=== PATIENT | female | born 1990 | race Caucasian/White ===

== ENCOUNTER → 2020-07-22 | Outpatient (CLI) | payer BC ==
[2020-07-22 16:08] LABS: BASO % 0.4 % (0.0-1.0); EOS # 0.2 10^3/uL (0.0-0.5); EOS % 2.4 % (0.0-3.0); HEMATOCRIT 41.2 % (36.0-47.0); HEMOGLOBIN 12.8 g/dl (12.0-15.5); LYMPH # 1.2 10^3/uL (1.5-5.0); LYMPH % 14.6 % (24.0-44.0); MEAN CORPUSCULAR HEMOGLOBIN 27.5 pg (27.0-33.0); MEAN CORPUSCULAR HGB CONC 31.1 g/dl (32.0-36.5); MEAN CORPUSCULAR VOLUME 88.6 fl (80.0-96.0); MONO # 0.5 10^3/uL (0.0-0.8); MONO % 6.6 % (0.0-5.0); NEUTROPHILS # 6.1 10^3/uL (1.5-8.5); NEUTROPHILS % 75.5 % (36.0-66.0); PLATELET COUNT, AUTOMATED 244 10^3/uL (150-450); RED BLOOD COUNT 4.65 10^6/uL (4.00-5.40)
[2020-07-22 16:34] LABS: ERYTHROCYTE SEDIMENTATION RATE 5 mm/hr (0-20)
[2020-07-22 16:42] LABS: ALBUMIN 4.1 GM/DL (3.2-5.2); ALT/SGPT 35 U/L (12-78); BILIRUBIN,TOTAL 0.4 MG/DL (0.2-1.0); BLOOD UREA NITROGEN 15 MG/DL (7-18); CALCIUM LEVEL 9.2 MG/DL (8.5-10.1); CARBON DIOXIDE LEVEL 28 MEQ/L (21-32); CHLORIDE LEVEL 105 MEQ/L (98-107); CREATININE FOR GFR 0.65 MG/DL (0.55-1.30); FREE T4 1.03 NG/DL (0.76-1.46); GLOMERULAR FILTRATION RATE > 60.0 (>60); GLUCOSE, FASTING 88 MG/DL (70-100); HCG, SERUM QUANTITATIVE < 1.0 MIU/ML; IRON (FE) 25 UG/DL (50-170); PERCENT SATURATION 5.5 % (13.2-45.0); POTASSIUM SERUM 4.4 MEQ/L (3.5-5.1); SODIUM LEVEL 138 MEQ/L (136-145); THYROID STIMULATING HORMONE 0.647 uIU/ML (0.358-3.740); TOTAL IRON BINDING CAPACITY 454 UG/DL (250-450); TOTAL PROTEIN 7.4 GM/DL (6.4-8.2)
== END ==
LOC: M WUC 14:13
PROVIDERS: ATTEND Physician Assistant
DX: J06.9 Acute upper respiratory infection, unspecified (principal); R11.0 Nausea; Z20.828 Contact with and (suspected) exposure to other viral communicable diseases

== ENCOUNTER → 2020-07-30 | Outpatient (REF) | payer BC ==
[2020-07-30 11:22] LABS: BASO # 0.1 10^3/uL (0.0-0.2); BASO % 0.8 % (0.0-1.0); EOS # 0.4 10^3/uL (0.0-0.5); EOS % 5.7 % (0.0-3.0); HEMATOCRIT 39.3 % (36.0-47.0); HEMOGLOBIN 12.8 g/dl (12.0-15.5); LYMPH # 2.5 10^3/uL (1.5-5.0); LYMPH % 35.5 % (24.0-44.0); MEAN CORPUSCULAR HGB CONC 32.6 g/dl (32.0-36.5); MEAN CORPUSCULAR VOLUME 89.1 fl (80.0-96.0); MONO # 0.7 10^3/uL (0.0-0.8); MONO % 9.2 % (0.0-5.0); NEUTROPHILS # 3.4 10^3/uL (1.5-8.5); NEUTROPHILS % 48.4 % (36.0-66.0); PLATELET COUNT, AUTOMATED 236 10^3/uL (150-450); RED BLOOD COUNT 4.41 10^6/uL (4.00-5.40); WHITE BLOOD COUNT 7.1 10^3/uL (4.0-10.0)
[2020-07-30 12:01] LABS: ALBUMIN 3.5 GM/DL (3.2-5.2); ALT/SGPT 42 U/L (12-78); BILIRUBIN,TOTAL 0.4 MG/DL (0.2-1.0); BLOOD UREA NITROGEN 13 MG/DL (7-18); CALCIUM LEVEL 8.9 MG/DL (8.5-10.1); CARBON DIOXIDE LEVEL 27 MEQ/L (21-32); CHLORIDE LEVEL 107 MEQ/L (98-107); FERRITIN 21 NG/ML (8-252); FREE T4 0.92 NG/DL (0.76-1.46); GLOMERULAR FILTRATION RATE > 60.0 (>60); GLUCOSE, FASTING 90 MG/DL (70-100); IRON (FE) 41 UG/DL (50-170); PERCENT SATURATION 10.4 % (13.2-45.0); POTASSIUM SERUM 4.2 MEQ/L (3.5-5.1); SODIUM LEVEL 139 MEQ/L (136-145); TOTAL 25(OH) VITAMIN D 21.5 NG/ML (30.0-100.0); TOTAL IRON BINDING CAPACITY 395 UG/DL (250-450); TOTAL PROTEIN 6.8 GM/DL (6.4-8.2); VITAMIN B12 LEVEL 606 PG/ML
[2020-07-30 12:02] LABS: FOLATE 17.5 NG/ML
== END ==
LOC: M WUC 10:17
PROVIDERS: ATTEND Physician Assistant
DX: D50.9 Iron deficiency anemia, unspecified (principal); R55 Syncope and collapse

== ENCOUNTER 2020-08-15 12:53 | Emergency (ER) | payer BC ==
[~2020-08-15] VITALS: Ht 154.9 cm; Wt 76.4 kg
[2020-08-15 12:53] VITALS: BP 136/85
[2020-08-15] MEDS ORDERED: GIAN1TAB (13:00)
--- NOTE | 2020-08-15 13:39 | REP ---
INDICATION: pain and swelling after a fall. COMPARISON: None. TECHNIQUE: Four views. FINDINGS: . four views of the right ankle demonstrate intact ankle mortise. There is an old accessory ossicle adjacent to the medial malleolus. No fracture is seen. Achilles and plantar calcaneal spurring is noted. There is mild anterolateral swelling. IMPRESSION: The no acute fracture noted. Well corticated accessory ossicle adjacent to the medial malleolus. Heel spurs. Anterolateral soft tissue swelling about the ankle. <Electronically signed by Winston Grullon > 08/15/20 [id number]
== END 2020-08-15 15:04 | disposition home or self-care (01) ==
LOC: M ED 12:53
DX: S93.401A Sprain of unspecified ligament of right ankle, initial encounter (principal); W00.0XXA Fall on same level due to ice and snow, initial encounter; Y92.512 Supermarket, store or market as the place of occurrence of the external cause; Z79.3 Long term (current) use of hormonal contraceptives

== ENCOUNTER → 2020-12-11 | Outpatient (CLI) | payer BC ==
[~2020-12-11] MED LIST: GIAN1TAB
--- NOTE | 2020-12-11 18:17 | REPVR ---
PROCEDURE INFORMATION: Exam: CT Right Lower Extremity Without Contrast, Foot Exam date and time: 12/11/2020 5:43 PM Age: 30 years old Clinical indication: Condition or disease; Other: FX of lower end RT tibia TECHNIQUE: Imaging protocol: CT of the Right lower extremity without contrast was performed. Exam focused on the foot. Radiation optimization: All CT scans at this facility use at least one of these dose optimization techniques: automated exposure control; mA and/or kV adjustment per patient size (includes targeted exams where dose is matched to clinical indication); or iterative reconstruction. COMPARISON: CR Ankle, complete 08/15/2020 1:09 PM FINDINGS: There is a coronal plane nondisplaced intra-articular fracture of the posterior tibial malleolus. No other fracture is identified. No dislocation. There is thickening of the anterior talofibular and calcaneofibular ligaments suspicious for sprains. 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 There are small smooth ossifications within the soft tissues at the anterior medial tibiofemoral joint consistent with old soft tissue and/or bone injury. The subtalar, talonavicular and calcaneocuboid joints are intact. Bone density is normal. There are small superior and inferior calcaneal spurs. IMPRESSION: 1. Acute nondisplaced intra-articular fracture of the posterior tibia malleolus. 2. Findings suspicious for sprains of the anterior talofibular and calcaneofibular ligaments. 3. Ossification at the anteromedial tibiotalar joint consistent with old soft tissue and/or bone injury. Electronically signed by: Luis E Theodore On 12/11/2020 18:17:29 PM
--- NOTE | 2020-12-11 18:20 | REPVR ---
PROCEDURE INFORMATION: Exam: CT Right Lower Extremity Without Contrast, Ankle Exam date and time: 12/11/2020 5:43 PM Age: 30 years old Clinical indication: Condition or disease; Other: FX of lower end RT tibia TECHNIQUE: Imaging protocol: CT of the Right lower extremity without contrast was performed. Exam focused on the ankle. Radiation optimization: All CT scans at this facility use at least one of these dose optimization techniques: automated exposure control; mA and/or kV adjustment per patient size (includes targeted exams where dose is matched to clinical indication); or iterative reconstruction. COMPARISON: CR Ankle, complete 08/15/2020 1:09 PM FINDINGS: There is a coronal plane nondisplaced intra-articular fracture of the posterior tibial malleolus. No other fracture is identified. No dislocation. There is thickening of the anterior talofibular and calcaneofibular ligaments suspicious for sprains. 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 There are small smooth ossifications within the soft tissues at the anterior medial tibiofemoral joint consistent with old soft tissue and/or bone injury. The subtalar, talonavicular and calcaneocuboid joints are intact. Bone density is normal. There are small superior and inferior calcaneal spurs. IMPRESSION: 1. Acute nondisplaced intra-articular fracture of the posterior tibia malleolus. 2. Findings suspicious for sprains of the anterior talofibular and calcaneofibular ligaments. 3. Ossification at the anteromedial tibiotalar joint consistent with old soft tissue and/or bone injury. Electronically signed by: Luis E Theodore On 12/11/2020 18:19:47 PM
== END ==
LOC: M RAD 17:29
PROVIDERS: ATTEND Physician Assistant Surgical
DX: S82.391D Other fracture of lower end of right tibia, subsequent encounter for closed fracture with routine healing (principal); Y92.9 Unspecified place or not applicable; Y93.9 Activity, unspecified; Y99.9 Unspecified external cause status

== ENCOUNTER 2020-12-28 03:10 | Emergency (ER) | payer BC ==
[~2020-12-28] VITALS: Ht 154.9 cm; Wt 80.3 kg
[2020-12-28 05:30] LABS: BASO % 0.3 % (0.0-1.0); EOS # 0.2 10^3/uL (0.0-0.5); EOS % 1.2 % (0.0-3.0); HEMATOCRIT 38.8 % (36.0-47.0); HEMOGLOBIN 12.7 g/dl (12.0-15.5); LYMPH # 1.4 10^3/uL (1.5-5.0); LYMPH % 11.1 % (24.0-44.0); MEAN CORPUSCULAR HEMOGLOBIN 29.1 pg (27.0-33.0); MEAN CORPUSCULAR HGB CONC 32.7 g/dl (32.0-36.5); MONO # 0.8 10^3/uL (0.0-0.8); MONO % 6.5 % (2.0-8.0); NEUTROPHILS # 10.2 10^3/uL (1.5-8.5); NEUTROPHILS % 80.3 % (36.0-66.0); PLATELET COUNT, AUTOMATED 216 10^3/uL (150-450); RED BLOOD COUNT 4.36 10^6/uL (4.00-5.40); WHITE BLOOD COUNT 12.7 10^3/uL (4.0-10.0)
[2020-12-28 05:57] LABS: HCG, SERUM QUALITATIVE NEGATIVE (NEGATIVE)
[2020-12-28 06:00] LABS: ALBUMIN 3.8 GM/DL (3.2-5.2); ALT/SGPT 27 U/L (12-78); BILIRUBIN,DIRECT 0.1 MG/DL (0.0-0.2); BILIRUBIN,TOTAL 0.3 MG/DL (0.2-1.0); BLOOD UREA NITROGEN 11 MG/DL (7-18); CARBON DIOXIDE LEVEL 28 MEQ/L (21-32); CHLORIDE LEVEL 105 MEQ/L (98-107); CREATININE FOR GFR 0.56 MG/DL (0.55-1.30); GLOMERULAR FILTRATION RATE > 60.0 (>60); GLUCOSE, FASTING 116 MG/DL (70-100); LIPASE 119 U/L (73-393); POTASSIUM SERUM 4.4 MEQ/L (3.5-5.1); SODIUM LEVEL 138 MEQ/L (136-145)
[2020-12-28] MEDS ORDERED: ISOVUE-370 76% 100ML VIAL As Ordered ONE (06:50)
--- NOTE | 2020-12-28 07:50 | REPVR ---
PROCEDURE INFORMATION: Exam: CT Abdomen And Pelvis With Contrast Exam date and time: 12/28/2020 6:56 AM Age: 30 years old Clinical indication: Other: Upper abd pain TECHNIQUE: Imaging protocol: Computed tomography of the abdomen and pelvis with contrast. Radiation optimization: All CT scans at this facility use at least one of these dose optimization techniques: automated exposure control; mA and/or kV adjustment per patient size (includes targeted exams where dose is matched to clinical indication); or iterative reconstruction. Contrast material: ISOVUE 370; Contrast volume: 100 ml; Contrast route: INTRAVENOUS (IV); COMPARISON: No relevant prior studies available. FINDINGS: Lungs: The visualized lung bases demonstrate minor dependent atelectasis. Liver: The liver contains a 4 mm hypodense lesion in its right lobe (image [id number]), too small to characterize. It appears otherwise unremarkable. Gallbladder and bile ducts: No gallstones are evident, but ultrasound would be more sensitive. There appears to be some gallbladder wall thickening and/or pericholecystic fluid, however. Pancreas: Normal. No ductal dilation. Spleen: Normal. No splenomegaly. Adrenal glands: Normal. No mass. Kidneys and ureters: Normal. No hydronephrosis. Stomach and bowel: The unopacified small bowel is not significantly distended to suggest obstruction. The large bowel is grossly unremarkable in appearance. Appendix: The appendix appears normal. Intraperitoneal space: No free air or significant free fluid. Vasculature: Unremarkable. No abdominal aortic aneurysm. Lymph nodes: Unremarkable. No enlarged lymph nodes. Urinary bladder: Unremarkable. Reproductive: There appears to be a thick-walled left adnexal cyst measuring up to 2.0 cm. Bones/joints: Mild degenerative changes involve the spine and hips. Soft tissues: Unremarkable. IMPRESSION: 1. Appearance of some gallbladder wall thickening and/or pericholecystic fluid, without cholelithiasis evident. Consider ultrasound as a more sensitive exam to possible gallstones and cholecystitis. 2. 4 mm hypodense hepatic lesion, too small to characterize. In a low-risk patient, this lesion is most likely to be benign and no further follow-up is recommended. In a high-risk patient, recommend follow-up MRI in 3-6 months (or earlier if warranted by the patient's specific clinical circumstances). 3. Appearance of a 2.0 cm thick-walled left adnexal cyst. Electronically signed by: Dayron Waller On 12/28/2020 07:49:57 AM
--- NOTE | 2020-12-28 09:00 | REP ---
INDICATION: upper abd pain. COMPARISON: None. TECHNIQUE: Real-time sonographic evaluation of right upper quadrant performed. FINDINGS: Multiple gallstones are seen in the gallbladder measuring up to 1.6 cm in maximum diameter. The gallbladder wall is thickened, AP diameter is 9 mm maximally. There is no pericholecystic fluid.. There is no intrahepatic or extrahepatic biliary dilatation, common bile duct measures 5 mm in maximum diameter. The liver demonstrates homogeneous echotexture with no gross mass. A hypoechoic nodule is seen in the body of the pancreas 12 x 8 x 7 mm. The right kidney demonstrates no hydronephrosis, with a normal size of 11.7 cm in length. No free fluid is seen. IMPRESSION: Multiple gallstones in the gallbladder. Gallbladder wall thickening up to 9 mm. No free fluid or biliary dilatation. There is a hypoechoic nodule in the body of the pancreas 12 x 8 x 7 mm. Recommend non emergent dedicated MRI of the pancreas with and without contrast. <Electronically signed by Roland Rick > 12/28/20 [id number]
[2020-12-28] MEDS ORDERED: AUGM875T28 PO (09:13)
[2020-12-28 09:21] VITALS: BP 120/69
--- NOTE | 2020-12-28 14:00 | ED PDOC ---
Post-Departure Follow-Up dr doran and dr andrea niño faxed [facility] for fu Genie Bennett MD Dec 28, 2020 14:00
== END 2020-12-28 09:27 | disposition home or self-care (01) ==
LOC: M ED 03:10
DX: K80.10 Calculus of gallbladder with chronic cholecystitis without obstruction (principal); Z79.3 Long term (current) use of hormonal contraceptives
CPT/HCPCS: 36415; 74177; 76705; 80048; 80076; 81001; 83690; 84703; 85025; 99284; Q9967

== ENCOUNTER → 2021-02-01 | Outpatient (CLI) | payer BC ==
[~2021-02-01] MED LIST changes: +AUGM875T28 PO; +PROHANCE 279.3MG/ML 15ML VIAL ONE
--- NOTE | 2021-02-01 12:50 | REP ---
INDICATION: NEOPLASM, ABNORMAL CT SCAN. COMPARISON: CT and ultrasound 12/28/2020. TECHNIQUE: Multiple sequences obtained in the axial coronal planes prior to and following the intravenous administration of 15 cc ProHance. FINDINGS: In the body of the pancreas there is a nodule, as seen on the recent ultrasound. This measures approximately 1.1 cm in diameter. It is hypointense on T1 and mildly hyperintense on T2. It is not well visualized on postcontrast images. There is no associated dilatation of the pancreatic duct. No other pancreatic abnormality is seen. No abnormality is seen of the liver. There are gallstones in the gallbladder, a dominant gallstone measures 1.7 cm. There are also a few subcentimeter gallstones. There is no gallbladder wall edema. There is no intrahepatic or extrahepatic biliary dilatation. The spleen, adrenals and kidneys are unremarkable in appearance. There is no adenopathy or free fluid in the abdomen. IMPRESSION: Nonspecific nodule in the body of the pancreas measuring 1.1 cm in diameter. This is not a simple cyst. It is not well seen on postcontrast imaging and is likely solid. Recommend endoscopic ultrasound and biopsy. <Electronically signed by Roland Rick > 02/01/21 [id number]
== END ==
LOC: M PLAIMG 10:38
PROVIDERS: ATTEND Physician Assistant
DX: D48.7 Neoplasm of uncertain behavior of other specified sites (principal)
CPT/HCPCS: 74183; A9576

== ENCOUNTER → 2021-02-05 | Outpatient (CLI) | payer BC ==
[~2021-02-05] MED LIST changes: -PROHANCE 279.3MG/ML 15ML VIAL ONE
[2021-02-05 10:20] LABS: ALBUMIN 3.6 GM/DL (3.2-5.2); ALT/SGPT 19 U/L (12-78); AMYLASE 60 U/L (25-115); BILIRUBIN,DIRECT 0.1 MG/DL (0.0-0.2); BILIRUBIN,TOTAL 0.4 MG/DL (0.2-1.0); BLOOD UREA NITROGEN 13 MG/DL (7-18); CALCIUM LEVEL 9.3 MG/DL (8.5-10.1); CARBON DIOXIDE LEVEL 27 MEQ/L (21-32); CHLORIDE LEVEL 109 MEQ/L (98-107); CREATININE FOR GFR 0.65 MG/DL (0.55-1.30); GLOMERULAR FILTRATION RATE > 60.0 (>60); GLUCOSE, FASTING 87 MG/DL (70-100); LIPASE 149 U/L (73-393); POTASSIUM SERUM 4.7 MEQ/L (3.5-5.1); SODIUM LEVEL 142 MEQ/L (136-145); TOTAL PROTEIN 7.2 GM/DL (6.4-8.2)
[2021-02-05 11:00] LABS: CA19-9 TUMOR MARKER,CARBOHYDRA 15.5 U/ML (<35.0)
== END ==
LOC: M WUC 08:29
PROVIDERS: ATTEND Physician Assistant
DX: D48.7 Neoplasm of uncertain behavior of other specified sites (principal)

== ENCOUNTER → 2021-02-17 | Outpatient (REF) | payer BC ==
[2021-02-17 17:28] LABS: AMYLASE 56 U/L (25-115); LIPASE 146 U/L (73-393)
== END ==
LOC: M WUC 16:29
PROVIDERS: ATTEND Internal Medicine Gastroenterology
DX: R10.13 Epigastric pain (principal); K86.89 Other specified diseases of pancreas

== ENCOUNTER → 2021-10-13 | Outpatient (CLI) | payer BC ==
[~2021-10-13] MED LIST changes: +PROHANCE 279.3MG/ML 15ML VIAL ONE
== END ==
LOC: M PLAIMG 08:56
PROVIDERS: ATTEND Internal Medicine Gastroenterology
DX: R10.13 Epigastric pain (principal); K80.20 Calculus of gallbladder without cholecystitis without obstruction; K86.89 Other specified diseases of pancreas
CPT/HCPCS: 74183; A9576

== ENCOUNTER 2021-11-16 05:52 | Emergency (ER) | payer BC ==
[~2021-11-16] VITALS: Ht 154.9 cm; Wt 81.3 kg
[~2021-11-16 05:52] MED LIST changes: -PROHANCE 279.3MG/ML 15ML VIAL ONE
[2021-11-16 05:53] VITALS: BP 115/66
[2021-11-16] MEDS ORDERED: ERGO500029 PO (06:09)
[2021-11-16] MEDS ORDERED: HYOS125TA PO (06:09)
[2021-11-16] MEDS ORDERED: CETI-24 PO (06:09)
== END 2021-11-16 07:28 | disposition left against medical advice (07) ==
LOC: M ED 05:52
DX: Z53.29 Procedure and treatment not carried out because of patient's decision for other reasons (principal)

== ENCOUNTER → 2022-05-17 | Outpatient (CLI) | payer BC ==
[~2022-05-17] MED LIST changes: +CETI-24 PO; +ERGO500029 PO; +HYOS125TA PO
[2022-05-17 18:00] LABS: HEMATOCRIT 37.8 % (36.0-47.0); HEMOGLOBIN 12.5 g/dl (12.0-15.5); MEAN CORPUSCULAR HEMOGLOBIN 29.3 pg (27.0-33.0); MEAN CORPUSCULAR HGB CONC 33.1 g/dl (32.0-36.5); MEAN CORPUSCULAR VOLUME 88.5 fl (80.0-96.0); PLATELET COUNT, AUTOMATED 246 10^3/uL (150-450); RED BLOOD COUNT 4.27 10^6/uL (4.00-5.40); WHITE BLOOD COUNT 7.5 10^3/uL (4.0-10.0)
[2022-05-17 19:09] LABS: HEPATITIS C VIRUS ABY INDEX < 0.0 INDEX (<0.8); HIV 1&2 SCREEN CENTAUR NEGATIVE (NEGATIVE)
[2022-05-17 19:49] LABS: GC DNA AMPLIFICATION NEGATIVE (NEGATIVE)
== END ==
LOC: M PLALAB 15:36
PROVIDERS: ATTEND Advanced Practice Midwife
DX: Z36.89 Encounter for other specified antenatal screening (principal)

== ENCOUNTER → 2022-07-15 | Outpatient (CLI) | payer BC | LOC: M WHC 08:55 | PROVIDERS: ATTEND Specialist | DX: Z34.82 Encounter for supervision of other normal pregnancy, second trimester (principal) ==

== ENCOUNTER → 2022-08-02 | Outpatient (CLI) | payer BC | LOC: M WHC 14:34 | PROVIDERS: ATTEND Advanced Practice Midwife | DX: Z34.92 Encounter for supervision of normal pregnancy, unspecified, second trimester (principal); Z3A.21 21 weeks gestation of pregnancy ==

== ENCOUNTER → 2022-09-05 | Outpatient (CLI) | payer BC ==
[2022-09-05 14:13] LABS: HEMATOCRIT 33.9 % (36.0-47.0); MEAN CORPUSCULAR HEMOGLOBIN 30.3 pg (27.0-33.0); MEAN CORPUSCULAR HGB CONC 32.4 g/dl (32.0-36.5); MEAN CORPUSCULAR VOLUME 93.4 fl (80.0-96.0); PLATELET COUNT, AUTOMATED 188 10^3/uL (150-450); RED BLOOD COUNT 3.63 10^6/uL (4.00-5.40); WHITE BLOOD COUNT 8.7 10^3/uL (4.0-10.0)
== END ==
LOC: M PLALAB 08:26
PROVIDERS: ATTEND Advanced Practice Midwife
DX: Z34.92 Encounter for supervision of normal pregnancy, unspecified, second trimester (principal)

== ENCOUNTER → 2022-11-08 | Outpatient (REF) | payer BC | LOC: M SFHCWAGY 10:00 | PROVIDERS: ATTEND Specialist | DX: Z34.83 Encounter for supervision of other normal pregnancy, third trimester (principal) ==

== ENCOUNTER 2022-12-11 13:11 | Inpatient (IN) | payer BC ==
[2022-12-11] VITALS (7 sets, daily range): BP systolic 136–162; BP diastolic 78–90
[~2022-12-11] VITALS: Ht 154.9 cm; Wt 81.6 kg
[2022-12-11] MEDS: PRENATAL VITAMINS CHEWABLE TABLET PO SCH (09:00)
[2022-12-11] MEDS ORDERED: LIDOCAINE 1% MDV 20ML VIAL INFIL PRN (13:55)
[2022-12-11] MEDS ORDERED: OXYTOCIN DRIP 30 UNITS in IV 1 EA IV PRN (13:55)
[2022-12-11 14:21] LABS: HEMATOCRIT 35.9 % (36.0-47.0); HEMOGLOBIN 12.1 g/dl (12.0-15.5); MEAN CORPUSCULAR HEMOGLOBIN 29.7 pg (27.0-33.0); MEAN CORPUSCULAR HGB CONC 33.7 g/dl (32.0-36.5); PLATELET COUNT, AUTOMATED 174 10^3/uL (150-450); RED BLOOD COUNT 4.08 10^6/uL (4.00-5.40); WHITE BLOOD COUNT 9.9 10^3/uL (4.0-10.0)
[2022-12-11] MEDS ORDERED: IBUPROFEN 800 MG TAB PO PRN (16:35)
[2022-12-11] MEDS ORDERED: DOCUSATE SODIUM 100MG CAPSULE PO PRN (16:35)
[2022-12-11] MEDS ORDERED: ACETAMINOPHEN 500 MG TAB PO PRN (16:35)
[2022-12-11] MEDS ORDERED: ACETAMINOPHEN TAB 650MG DOSE (2X325MG) PO PRN (16:35)
[2022-12-11] MEDS ORDERED: IBUPROFEN 600MG TAB PO PRN (16:35)
[2022-12-11] MEDS ORDERED: DIBUCAINE 1% OINTMENT 30GM TOP PRN (16:35)
[2022-12-11] MEDS ORDERED: METHYLERGONOVINE MALEATE 0.2 MG TAB PO PRN (16:35)
[2022-12-11] MEDS ORDERED: RHOGAM 300MCG (1500IU) INJ IM SCH (16:35)
[2022-12-12 06:16] VITALS: BP 136/90
[2022-12-12] MEDS: PRENATAL VITAMINS CHEWABLE TABLET PO SCH (09:17)
[2022-12-12 17:45] VITALS: BP 162/84
[2022-12-12 18:00] VITALS: BP 154/88
[2022-12-12 22:00] VITALS: BP 128/74
[2022-12-13] VITALS (7 sets, daily range): BP systolic 125–148; BP diastolic 72–90
[2022-12-13 07:55] LABS: URIC ACID 4.9 MG/DL (3.1-7.8)
[2022-12-13 07:57] LABS: LDH LACTATE DEHYDROGENASE 235 U/L (120-246)
[2022-12-13 07:58] LABS: ALT/SGPT 11 U/L (7.0-40); AST/SGOT < 8 U/L (<34); BILIRUBIN,TOTAL 0.4 MG/DL (0.3-1.2); CREATININE FOR GFR 0.62 MG/DL (0.55-1.30); GLOMERULAR FILTRATION RATE > 60.0 (>60)
[2022-12-13 08:03] LABS: HEMATOCRIT 29.3 % (36.0-47.0); MEAN CORPUSCULAR HEMOGLOBIN 30.5 pg (27.0-33.0); MEAN CORPUSCULAR HGB CONC 33.8 g/dl (32.0-36.5); MEAN CORPUSCULAR VOLUME 90.2 fl (80.0-96.0); PLATELET COUNT, AUTOMATED 160 10^3/uL (150-450); RED BLOOD COUNT 3.25 10^6/uL (4.00-5.40); WHITE BLOOD COUNT 10.2 10^3/uL (4.0-10.0)
[2022-12-13 08:15] LABS: HEMOGLOBIN 9.9 g/dl (12.0-15.5)
[2022-12-13] MEDS ORDERED: MEASLES,MUMPS,RUBELLA VACCINE INJ (MMR-II) SC.IMMUN ONE (09:00)
[2022-12-13] MEDS: PRENATAL VITAMINS CHEWABLE TABLET PO SCH (09:11)
[2022-12-13] MEDS ORDERED: IBUP-1022 PO (14:47)
[2022-12-13] MEDS ORDERED: COLA100C5 PO (14:47)
[2022-12-13] MEDS ORDERED: ACET-683 PO (14:47)
== END 2022-12-13 19:28 | disposition home or self-care (01) | DRG 560 ==
LOC: M LDO 13:11 → M LDI 13:46 → M OBS 19:14
PROVIDERS: ADMIT Specialist; ATTEND Specialist
PROC: 10E0XZZ Delivery of Products of Conception, External Approach (ICD-10-PCS; principal; 2022-12-11)
DX: O48.0 Post-term pregnancy (principal); O70.1 Second degree perineal laceration during delivery; Z37.0 Single live birth; Z3A.41 41 weeks gestation of pregnancy

== ENCOUNTER → 2024-01-09 | Outpatient (CLI) | payer BC ==
[~2024-01-09] MED LIST changes: +ACET-683 PO; +COLA100C5 PO; +IBUP-1022 PO; +PROHANCE 279.3MG/ML 15ML VIAL ONE
== END ==
LOC: M PLAIMG 15:09
PROVIDERS: ATTEND Physician Assistant
DX: D13.6 Benign neoplasm of pancreas (principal)
CPT/HCPCS: 74183; A9576

== ENCOUNTER → 2024-06-21 | Outpatient (CLI) | payer BC ==
[~2024-06-21] MED LIST changes: -PROHANCE 279.3MG/ML 15ML VIAL ONE
[2024-06-21 12:31] LABS: BASO % 0.6 % (0.0-1.0); EOS # 0.4 10^3/uL (0.0-0.5); HEMOGLOBIN 12.1 g/dl (12.0-15.5); LYMPH # 1.9 10^3/uL (1.5-5.0); LYMPH % 30.9 % (24.0-44.0); MEAN CORPUSCULAR HGB CONC 31.8 g/dl (32.0-36.5); MONO # 0.5 10^3/uL (0.0-0.8); MONO % 8.6 % (2.0-8.0); NEUTROPHILS # 3.3 10^3/uL (1.5-8.5); NEUTROPHILS % 52.6 % (36.0-66.0); PLATELET COUNT, AUTOMATED 251 10^3/uL (150-450); RED BLOOD COUNT 4.32 10^6/uL (4.00-5.40); WHITE BLOOD COUNT 6.3 10^3/uL (4.0-10.0)
[2024-06-21 12:59] LABS: HEMOGLOBIN A1c 5.2 % (4.0-6.0)
[2024-06-21 13:01] LABS: TOTAL IRON BINDING CAPACITY 354 UG/DL (250-425)
[2024-06-21 13:02] LABS: ALBUMIN 3.7 G/DL (3.2-5.2); ALKALINE PHOSPHATASE 53 U/L (35-104); ALT/SGPT 13 U/L (7.0-40); AST/SGOT < 8 U/L (<34); BILIRUBIN,TOTAL 0.5 MG/DL (0.3-1.2); BLOOD UREA NITROGEN 12 MG/DL (9-23); CALCIUM LEVEL 9.3 MG/DL (8.5-10.1); CARBON DIOXIDE LEVEL 27 MMOL/L (20-31); CHLORIDE LEVEL 108 MMOL/L (98-107); CHOLESTEROL LEVEL 128 MG/DL (<200); CREATININE FOR GFR 0.68 MG/DL (0.55-1.30); GLOMERULAR FILTRATION RATE > 60.0 (>60); GLUCOSE, FASTING 92 MG/DL (60-100); HDL CHOLESTEROL 49.1 MG/DL (>40); IRON (FE) 48 UG/DL (50-170); LDL CHOLESTEROL 62.5 MG/DL (<100); NON-HDL-C 78.9 MG/DL; PERCENT SATURATION 13.6 % (13.2-45.0); POTASSIUM SERUM 4.5 MMOL/L (3.5-5.1); SODIUM LEVEL 142 MMOL/L (136-145); TOTAL PROTEIN 6.9 G/DL (5.7-8.2); TRIGLYCERIDES LEVEL 82 MG/DL (<150)
[2024-06-21 13:04] LABS: FERRITIN 10.8 NG/ML (7.3-270.7); FOLATE 22.9 NG/ML (>5.4)
[2024-06-21 13:05] LABS: VITAMIN B12 LEVEL 749 PG/ML (211-911)
[2024-06-26 17:43] LABS: INSULIN FREE 28.6 uIU/mL (1.5-14.9); INSULIN TOTAL2 43.9 uIU/mL
== END ==
LOC: M WUC 08:36
PROVIDERS: ATTEND Physician Assistant
DX: Z13.220 Encounter for screening for lipoid disorders (principal); Z13.0 Encounter for screening for diseases of the blood and blood-forming organs and certain disorders involving the immune mechanism; D13.6 Benign neoplasm of pancreas; F41.1 Generalized anxiety disorder

== ENCOUNTER → 2024-09-11 | Outpatient (CLI) | payer BC ==
[2024-09-11 16:18] LABS: BLOOD UREA NITROGEN 13 MG/DL (9-23); CALCIUM LEVEL 8.9 MG/DL (8.5-10.1); CARBON DIOXIDE LEVEL 30 MMOL/L (20-31); CHLORIDE LEVEL 104 MMOL/L (98-107); CREATININE FOR GFR 0.63 MG/DL (0.55-1.30); GLOMERULAR FILTRATION RATE > 60.0 (>60); GLUCOSE, FASTING 98 MG/DL (60-100); POTASSIUM SERUM 4.7 MMOL/L (3.5-5.1); SODIUM LEVEL 139 MMOL/L (136-145)
[2024-09-11 16:19] LABS: HCG, SERUM QUALITATIVE NEGATIVE (NEGATIVE)
== END ==
LOC: M LAB 15:11
PROVIDERS: ATTEND Physician Assistant
DX: Z79.899 Other long term (current) drug therapy (principal)